=== PATIENT | female | born 1985 | race Caucasian/White ===

== ENCOUNTER 2017-04-16 05:49 | Day surgery (SDC) | payer OTHER ==
[2017-04-16] MEDS ORDERED: CEFAZOLIN 1 GM INJ (07:00)
[2017-04-16] MEDS ORDERED: LIDOCAINE 2% (SDV) 5 ML INJ (07:00)
[2017-04-16] MEDS ORDERED: EPHEDrine SULFATE 50 MG/5 ML SYG (07:00)
[2017-04-16 08:12] LABS: ADD MAN DIFF? NO
[2017-04-16 08:14] LABS: BASOPHIL # 0.1 10^3/ul (0.0-0.1); BASOPHILS % 0.8 % (0.0-2.0); EOSINOPHILS # 0.5 10^3/ul (0.0-0.5); EOSINOPHILS % 7.6 % (0.0-7.0); HEMOGLOBIN 13.6 g/dl (12.0-16.0); LYMPHOCYTES # 2.2 10^3/ul (0.8-2.9); MEAN CORPUSCULAR HEMOGLOBIN 30.3 pg (29.0-33.0); MEAN CORPUSCULAR VOLUME 89.1 fl (82.0-101.0); MEAN PLATELET VOLUME 10.2 fl (7.4-10.4); MONOCYTE # 0.3 10^3/ul (0.3-0.9); MONOCYTES % 4.5 % (0.0-11.0); NEUTROPHIL # 3.9 10^3/ul (1.6-7.5); NEUTROPHILS % 55.1 % (39.0-77.0); PLATELET COUNT 243 10^3/UL (140-415); RED BLOOD COUNT 4.49 10^6/ul (4.20-5.40); RED CELL DISTRIBUTION WIDTH 12.4 % (11.5-14.5)
[2017-04-16 08:14] LABS: WHITE BLOOD COUNT 7.1 10^3/ul (4.8-10.8)
[2017-04-16 08:22] LABS: ADD UMIC NO; UR ASCORBIC ACID NEGATIVE (NEGATIVE); UR BILIRUBIN (Dip) NEGATIVE (NEGATIVE); UR BLOOD (Dip) NEGATIVE (NEGATIVE); UR CLARITY CLEAR (CLEAR); UR COLOR YELLOW (YELLOW); UR GLUCOSE (Dip) NEGATIVE (NEGATIVE); UR KETONES (Dip) NEGATIVE (NEGATIVE); UR LEUKOCYTE ESTERASE (Dip) NEGATIVE Leu/ul (NEGATIVE); UR NITRITE (Dip) NEGATIVE (NEGATIVE); UR SPECIFIC GRAVITY (Dip) 1.019 (1.003-1.030); UR TOTAL PROTEIN (Dip) NEGATIVE (NEGATIVE); UR UROBILINOGEN (Dip) NEGATIVE (NEGATIVE)
[2017-04-16] MEDS ORDERED: FENTAnyl 50 MCG/ML VIAL (08:24)
[2017-04-16] MEDS ORDERED: MIDAZOLAM 1 MG/ML 2 ML INJ (08:24)
[2017-04-16] MEDS ORDERED: PROPOFOL 20 ML (08:24)
[2017-04-16] MEDS ORDERED: DEXAMETHASONE 4 MG/ML 1 ML INJ (08:25)
[2017-04-16] MEDS ORDERED: ONDANSETRON 4 MG INJ (08:25)
[2017-04-16] MEDS ORDERED: KETOROLAC 30 MG INJ (08:25)
[2017-04-16] MEDS ORDERED: HYDROmorphONE (0.2 MG/ML) 10ML SYG IV (09:30)
[2017-04-16] MEDS ORDERED: OXYCODONE/ACETAMINOPHEN (5/325) TAB PO ×2 (09:30)
[2017-04-16] MEDS: HYDROmorphONE (0.2 MG/ML) 10ML SYG IV ×4 (10:04→10:35)
[2017-04-16] MEDS: ONDANSETRON 4 MG INJ IV (10:05)
== END 2017-04-16 11:20 | disposition home or self-care (01) ==
LOC: SDS 05:49
DX: M67.431 Ganglion, right wrist (principal)
CPT/HCPCS: 25111; 81003; 84703; 85025; 88304